=== PATIENT | male | born 2000 | race African-American/Black ===

== ENCOUNTER 2024-10-14 13:57 | Emergency (ER) | payer OTHER ==
[~2024-10-14] VITALS: Ht 170.2 cm; Wt 104.0 kg
[2024-10-14 14:12] VITALS: TEMP 98
[2024-10-14] MEDS: CYCLOBENZAPRINE HCL 10 MG TABLET PO ONE (15:23)
[2024-10-14] MEDS: KETOROLAC TROMETHAMINE 30 MG/ML VIAL IM ONE (15:24)
[2024-10-14] MEDS: LIDOCAINE 5% TRANSDERMAL PATCH TD ONE (15:25)
[2024-10-14 16:20] VITALS: BP 116/71; PULSE 74; RESP 18; O2SAT 98
[2024-10-14] MEDS ORDERED: IBUP-1492 PO (16:24)
[2024-10-14] MEDS ORDERED: CYCL-448 PO (16:24)
== END 2024-10-14 17:15 | disposition home or self-care (01) ==
LOC: EMS 14:39
DX: M54.32 Sciatica, left side (principal); R20.2 Paresthesia of skin; M79.605 Pain in left leg
CPT/HCPCS: 99283; 96372; J1885